=== PATIENT | female | born 1985 | race Two or more races ===

== ENCOUNTER 2019-10-07 01:22 | Inpatient (IN) | payer MEDICAID ==
[~2019-10-07] VITALS: Ht 160 cm; Wt 63.5 kg
--- NOTE | 2019-10-07 01:37 | NUR ---
ED Nurse Note: Pt ambulated to ED from home c/o N/V and abdominal pain for several hours.Pt is A&Ox4, VSS. Pt has a hx of pancreatitis and gall stones. Pt was recently hospitalized for the same symptoms. Pt placed on manufacturing team leader
--- NOTE | 2019-10-07 01:39 | Emergency Room Report ---
History of Present Illness General Chief Complaint: Abdominal Pain Source: Patient Present Illness HPI 34-year-old female with past medical history of cholelithiasis presents with complaint of postprandial epigastric abdominal pain with radiation to the right upper quadrant. Patient states this feels different from her regular gallstone pancreatitis. Patient has been unable to follow-up with a general surgeon as an outpatient since her discharge from the hospital last month. Last oral intake was dinner around 8 PM. Last bowel movement was this morning and normal. Patient denies fevers, chills, however has nausea and an episode of nonbloody nonbilious vomiting. No diarrhea. Denies dysuria or hematuria, chest pain, shortness of breath, cough or other complaints. The patient's symptoms were gradual onset, severity was moderate, duration since 1 day. Quality: Squeezing Past medical history: Cholelithiasis Past surgical history: Denies Smoking: Denies Alcohol use: Denies Drug use: Denies Review of systems: CONST: No fevers or chills, No night sweats PULMONARY: No productive cough, No shortness of breath CARDIAC: No chest pain, No palpitations GI: No vomiting, No diarrhea , No melena_or_BRBPR : No dysuria, No hematuria, No discharge NEURO: No new_focal_weakness_or_numbness, No confusion, No vision changes 14 point Review of Systems is otherwise negative except per HPI Physical Exam: GENERAL: Awake_alert_ nontoxic, no acute distress Spo2 100% on RA -normal EYES: Extraocular muscles are intact. Conjunctivae clear. Lids without swelling ENT: External nose and ear normal_in_appearance. Oropharynx clear. Head_ atraumatic, Moist_oral_mucosa NECK: No JVD. No meningismus. No thyromegaly. Supple. Trachea midline RESP: Normal respiratory effort. Symmetric rise. No stridor. Clear_to_ auscultation_No_rales_No_wheezes CARDIAC: Regular rate and regular rhytm. No_significant pedal edema. ABDOMEN: Soft. Nondistended. Nontender_No_rebound_or_guarding. Epigastric right upper quadrant tenderness to palpation. Negative Goode sign. Negative Rovsing sign. Negative obturator sign. No CVA tenderness to palpation MSK: Normal muscle tone, without rigidity. Extremities without asymmetric deformity or swelling. SKIN: Warm and dry. No visible cyanosis or pallor NEUROLOGIC: Alert, oriented x3. Motor_and_sensation_grossly_intact. No truncal ataxia. Gait_normal Psych: Normal mood and affect, normal judgment and insight - COORDINATION OF CARE Case was discussed with: Patient patient's physician Any labs and imaging that were ordered were interpreted as part of the medical decision making: I did review previous medical records from last admission. Patient was noted to have cholelithiasis on ultrasound. Abdominal MRCP was performed and negative for acute cholecystitis. Pancreatitis was also noted during that admission and resolved Medical Decision Making/Plan: Differential diagnosis includes cholecystitis, choledocholithiasis, hepatitis, small bowel obstruction, volvulus, AAA, pancreatitis, atypical appendicitis, gastroparesis, gastritis, peptic ulcer disease, among others. Patient is well appearing with stable vital signs. Abdominal exam is non peritoneal with no guarding or rebound. Labs show barely elevated lipase level greater than 2000. No obstructive biliary pattern. She has a transaminitis which is stable from last admission. No leukocytosis. Troponin negative x1. Incidentally, patient has mild UTI on urinalysis EKG shows sinus arrhythmia. No acute ST elevation [place]. ED intervention included multiple rounds of morphine and Zofran for her abdominal pain. Also received Rocephin for UTI. Abdominal pain is likely secondary to pancreatitis. Doubt pseudocyst at this time. According to the hydrological technical officer, the pancreas is normal-appearing. CBD is marginally dilated. Otherwise no gallbladder wall thickening, sonographic Goode sign, or pericholecystic fluid. The patient denies any bloody stool and has no pain out of proportion to exam, and no significant risk factors for mesenteric ischemia such as atrial fibrillation or severe PAD/PVD (peripheral arterial / vascular disease), thus definitive workup to rule out mesenteric ischemia was not pursued. The patient has no significant risk factors for AAA (abdominal aortic aneurysm) such as age over 50 with history of hypertension, connective tissue disorder, or 1st degree relative with AAA. the patient has normal dorsalis pedis pulses, no radiation of pain to the back, and no pulsatile mass felt on exam. The patients profile was overall low risk for AAA and definitive workup was not pursued. The patients symptoms are not consistent with ACS (acute coronary syndrome), symptoms are not exertional, EKG without obvious ischemic change. Allergies: Coded Allergies: No Known Allergies (Unverified , 08/21/19) COVID-19 Screening Contact w/high risk pt: No Recent Travel to affected area: No Experienced COVID-19 symptoms?: No COVID-19 Testing performed CALIBRATION ENGINEER: No Patient History Last Menstrual Period: 09/2019 Physical Exam Vital Signs Date Time Temp Pulse Resp B/P (MAP) Pulse Ox O2 Delivery O2 Flow Rate FiO2 10/07/19 01:28 97.5 86 16 106/67 (80) 97 Room Air Sp02 EP Interpretation: reviewed, normal Medical Decision Making Diagnostic Impression: Primary Impression: Acute gallstone pancreatitis Additional Impressions: Abdominal pain Nausea & vomiting Transaminitis UTI (urinary tract infection) EKG Diagnostic Results CHRISTINE Aragon Text 12-lead EKG (interpreted by me) Time: Indication: Rhythm analysis Tracing visualized and Interpreted by me. Rhythm: Normal sinus rhythm Rate: 69 bpm QTc: 396 Morphology: No_significant_ST_elevations_or_depressions, No STEMI Impression: Normal_sinus_rhythm_without_significant_abnormality. Sinus arrhythmia Rhythm Strip Diag. Results Rhythm Strip Time: 02:49 EP Interpretation: yes Rate: 77 Rhythm: NSR, no PVC's, no ectopy Reevaluation Time: 02:49 Last Vital Signs Date Time Temp Pulse Resp B/P (MAP) Pulse Ox O2 Delivery O2 Flow Rate FiO2 10/07/19 01:28 97.5 86 16 106/67 (80) 97 Room Air Status: improved Disposition: ADMITTED INPATIENT Admit Decision Time: 02:49 Condition: Stable Scripts No Active Prescriptions or Reported Meds Iram Hernandez D.O. Oct 07, 2019 01:39
[2019-10-07 01:40] VITALS: BP 106/67
[2019-10-07] MEDS ORDERED: Morphine Sulfate 4mg/ml Inj (IV USE ONLY) ONE (01:57)
[2019-10-07] MEDS ORDERED: Morphine Sulfate 4mg/ml Inj (IV USE ONLY) IVP ONE ×2 (02:00→02:45)
--- NOTE | 2019-10-07 02:20 | NUR ---
ED Nurse Note: US at bedside
[2019-10-07 02:27] LABS: BASOPHILS % (AUTO) 0.9 % (0.0-2.0); EOSINOPHILS % (AUTO) 0.7 % (0.0-3.0); HEMATOCRIT 38.1 % (37.0-47.0); HEMOGLOBIN 13.1 G/DL (12.0-16.0); LYMPHOCYTES % (AUTO) 36.8 % (20.0-45.0); MEAN CORPUSCULAR VOLUME 89 FL (80-99); MONOCYTES % (AUTO) 6.7 % (1.0-10.0); NEUTROPHILS % (AUTO) 54.9 % (45.0-75.0); PLATELET COUNT 288 K/UL (150-450); RED BLOOD COUNT 4.27 M/UL (4.20-5.40); RED CELL DISTRIBUTION WIDTH 10.9 % (11.6-14.8); WHITE BLOOD COUNT 10.1 K/UL (4.8-10.8)
[2019-10-07 02:30] LABS: ANION GAP 10 mmol/L (5-15); BLOOD UREA NITROGEN 26 mg/dL (7-18); CALCIUM 9.2 MG/DL (8.5-10.1); CARBON DIOXIDE 28 MMOL/L (21-32); CHLORIDE 100 MMOL/L (98-107); CREATININE 0.9 MG/DL (0.55-1.30); POTASSIUM 3.5 MMOL/L (3.5-5.1); SODIUM 138 MMOL/L (136-145)
[2019-10-07 02:35] LABS: ALANINE AMINOTRANSFERASE 132 U/L (12-78); ALBUMIN 3.8 G/DL (3.4-5.0); ALBUMIN/GLOBULIN RATIO 1.1 (1.0-2.7); ALKALINE PHOSPHATASE 92 U/L (46-116); ASPARTATE AMINO TRANSFERASE 212 U/L (15-37); BILIRUBIN,TOTAL 0.3 MG/DL (0.2-1.0)
[2019-10-07 02:36] LABS: APPEARANCE,URINE CLOUDY; BILIRUBIN, URINE NEGATIVE (NEGATIVE); COLOR,URINE PALE YELLOW; GLUCOSE, URINE (UA) NEGATIVE (NEGATIVE); KETONES,URINE NEGATIVE (NEGATIVE); LEUKOCYTE ESTERASE ,URINE 1+ (NEGATIVE); NITRITE,URINE NEGATIVE (NEGATIVE); PH,URINE 8 (4.5-8.0); PROTEIN,URINE NEGATIVE (NEGATIVE); UROBILINOGEN,URINE NORMAL MG/DL (0.0-1.0)
[2019-10-07] MEDS ORDERED: cefTRIAXone 1 GM in NS 55 ML IVPB ONE (02:45)
--- NOTE | 2019-10-07 03:46 | Diagnostic Imaging Report ---
EXAM: US Abdomen Complete CLINICAL HISTORY: ABD PAIN TECHNIQUE: Real-time ultrasound of the abdomen with image documentation. COMPARISON: No relevant prior studies available. FINDINGS: Liver: Unremarkable. No mass. No intrahepatic bile duct dilation. Gallbladder: Multiple shadowing gallstones. Negative for gallbladder wall thickening or pericholecystic fluid. Borderline extrahepatic biliary ductal dilatation with the common duct measuring slightly greater than 5 mm. Common bile duct: See above Pancreas: Unremarkable as visualized. Kidneys: Unremarkable. No stones. No solid mass. No hydronephrosis. Spleen: Unremarkable. No splenomegaly. Aorta: Unremarkable. No aneurysm. Inferior vena cava: Unremarkable. IMPRESSION: Cholelithiasis and borderline extrahepatic biliary ductal dilatation.
--- NOTE | 2019-10-07 04:15 | NUR ---
TRANSFER TO FLOOR: Patient transferred to as ordered, per DR ruiz. Report given to MAIKEL Tatum. Belongings and medications given to . Family and or S/O informed of transfer.
[2019-10-07 04:20] VITALS: BP 102/66
--- NOTE | 2019-10-07 04:20 | NUR ---
NURSE NOTES: Report received from MAIKEL Tabares. Patient arrived at the unit at 0420 am. Patient's belongings brought and at the bedside. Checked inventory list, alll belongings present. Patient denies any pain as of the moment. Patient is alert and oriented x4. very pleasant female. Will call for admitting orders.
--- NOTE | 2019-10-07 05:00 | NUR ---
NURSE NOTES: Received orders from Dr Ramirez for the admission. Received order to continue all ED orders.
[2019-10-07] MEDS ORDERED: Morphine Sulfate 2mg/ml Inj(IV/IM USE ONLY) IVP PRN (05:15)
--- NOTE | 2019-10-07 07:14 | NUR ---
NURSE HAND-OFF: Important Events on Shift:[Admission/ Pain management ] Patient Status: [Stable] Diet: [NPO] Pending Orders: [] Pending Results/Labs:[] Pending MD notification:[] Latest Vital Signs: Temperature 98.1 , Pulse 75 , B/P 102 /66 , Respiratory Rate 18 , O2 SAT 100 , Room Air, O2 Flow Rate . Vital Sign Comment: [] Latest Young Fall Score: 35 Fall Risk: Medium Risk Safety Measures: Call light Within Reach, Bed Alarm , Side Rails Side Rails x2, Bed position Low and Locked. Fall Precautions: Patient Fall Education Report given to [Kaleigh KO].
[2019-10-07 08:00] VITALS: BP 101/59
--- NOTE | 2019-10-07 08:00 | NUR ---
NURSE NOTES: Received report from Rc KO, pt is a/a/o x4 laying in bed with no signs of distress or other issues at this time. no skin issues. IV on the right AC gauge #22 running NS@100ml/hr. call light within reach, bed in lowest position. side rales up x2. I will f/u as needed.
--- NOTE | 2019-10-07 10:11 | General Progress Note ---
Assessment/Plan Assessment/Plan: ? gallstone pancreatitis NPO IVF pain control MRCP repeat labs surg consult Subjective Allergies: Coded Allergies: No Known Allergies (Unverified , 08/21/19) Objective Last 24 Hour Vital Signs Date Time Temp Pulse Resp B/P (MAP) Pulse Ox O2 Delivery O2 Flow Rate FiO2 10/07/19 08:00 97.6 70 16 101/59 (73) 99 10/07/19 04:20 98.1 75 18 102/66 (78) 100 10/07/19 04:15 98.0 82 16 112/64 100 Room Air 10/07/19 04:03 Room Air 10/07/19 02:29 97.6 10/07/19 01:40 86 16 Room Air 10/07/19 01:40 97.5 86 16 106/67 97 Room Air 10/07/19 01:28 97.5 86 16 106/67 (80) 97 Room Air Laboratory Tests 10/07/19 01:35: Urine Color Pale yellow, Urine Appearance Cloudy, Urine pH 8, Urine Specific Pound 1.010, Urine Protein Negative, Urine Glucose (UA) Negative, Urine Ketones Negative, Urine Blood Negative, Urine Nitrite Negative, Urine Bilirubin Negative, Urine Urobilinogen Normal, Urine Leukocyte Esterase 1+H, Urine RBC 0-2 , Urine WBC 2-4, Urine Squamous Epithelial Cells ModerateH, Urine Amorphous Sediment ManyH, Urine Bacteria ModerateH, Urine Coarse Granular Casts 5-10H 10/07/19 02:00: White Blood Count 10.1, Red Blood Count 4.27, Hemoglobin 13.1, Hematocrit 38.1, Mean Corpuscular Volume 89, Mean Corpuscular Hemoglobin 30.6, Mean Corpuscular Hemoglobin Concent 34.3, Red Cell Distribution Width 10.9L, Platelet Count 288, Mean Platelet Volume 7.1, Neutrophils (%) (Auto) 54.9, Lymphocytes (%) (Auto) 36.8, Monocytes (%) (Auto) 6.7, Eosinophils (%) (Auto) 0.7, Basophils (%) (Auto ) 0.9, Prothrombin Time 10.8, Prothromb Time International Ratio 1.0, Activated Partial Thromboplast Time 26, Sodium Level 138, Potassium Level 3.5, Chloride Level 100, Carbon Dioxide Level 28, Anion Gap 10, Blood Urea Nitrogen 26H, Creatinine 0.9, Estimat Glomerular Filtration Rate > 60, Glucose Level 97, Calcium Level 9.2, Total Bilirubin 0.3, Aspartate Amino Transf (AST/SGOT) 212H, Alanine Aminotransferase (ALT/SGPT) 132H, Alkaline Phosphatase 92, Total Protein 7.4, Albumin 3.8, Globulin 3.6, Albumin/Globulin Ratio 1.1, Lipase 2067H , Human Chorionic Gonadotropin, Qual Negative Height (Feet): 5 Height (Inches): 4.00 Weight (Pounds): 140 General Appearance: alert EENT: PERRL/EOMI Neck: supple Cardiovascular: normal rate Respiratory/Chest: decreased breath sounds Abdomen: hypoactive bowel sounds, tender Extremities: non-tender Shashank Onofre MD Oct 07, 2019 10:11
[2019-10-07 12:00] VITALS: BP 114/70
--- NOTE | 2019-10-07 14:26 | NUR ---
CASE MANAGEMENT: INITIAL REVIEW 34YR OLD FEMALE FROM HOME CC:ABDOMINAL PAIN; NV SI:ACUTE GALLSTONE PANCREATITIS . UTI 97.6 86 16 106/67 97% ON RA LIPASE 2067 AST.ALT 212/132 BUN 26 IS:IVF NS BOLUS X1 IV ZOFRAN X2 IV MORPHINE SULFATE X2 US ABD Complete-Cholelithiasis and borderline extrahepatic biliary ductal dilatation. \: 3E MED SURG UNIT DCP: HOME WHEN STABLE
--- NOTE | 2019-10-07 15:26 | Diagnostic Imaging Report ---
Indication: Reason For Exam: ABD PAIN Technique: Coronal and axial single shot fast spin-echo breath-hold, axial T2 FRFSE, 2-D thick slab MRCP, AXIAL 2-D FIESTA fat saturated, axial 3-D dual echo breath-hold, water weighted axial LAVA FLEX, revealed 3-D MRCP images were obtained of the abdomen. MIP reconstructions were generated of the bile ducts Comparison: 08/22/2019. Reference also made to abdominal sonogram 10/07/2019 Findings: Small low signal filling defects are seen at or near the gallbladder neck, also previously reported. No gallbladder distention or gallbladder wall thickening. No josue biliary ductal dilatation-common bile duct diameter upper limits of normal. The pancreatic duct is not well visualized. The liver, pancreas, spleen, adrenals are all unremarkable. The kidneys are unremarkable. Included pelvic viscera are unremarkable. No significant interim change. Impression: Cholelithiasis Otherwise essentially unremarkable exam
[2019-10-07 16:00] VITALS: BP 108/64
--- NOTE | 2019-10-07 17:00 | History and Physical Report ---
DATE OF ADMISSION: 10/07/2019 HISTORY OF PRESENT ILLNESS: This is a 34-year-old female, came with abdominal pain, nausea, vomiting, was found to have a possible UTI and acute pancreatitis. The patient is still complaining pain. No fever. No chills. PAST MEDICAL HISTORY: None. ALLERGIES: None. SOCIAL HISTORY: Denies alcohol. PHYSICAL EXAMINATION: VITAL SIGNS: Blood pressure 101/59, pulse 70, respirations 16, temperature 97.6. HEENT: NAD. CHEST: Bilaterally clear. CARDIOVASCULAR: Regular rhythm. No gallop. No murmur. ABDOMEN: Mild tenderness in the right upper quadrant. GENITOURINARY: Deferred. LABORATORY DATA: White counts are 10,000, hemoglobin 13. Chemistry, BUN 26, creatinine 0.9. AST, ALT are high. Lipase 2066. Ultrasound of her abdomen, cholelithiasis and borderline biliary dilatation. ASSESSMENT: 1. Acute pancreatitis. 2. Acute cholelithiasis. PLAN: We will admit on medical floor. Start IV fluid, IV antibiotics. Consider GI consult. Emile Ramirez M.D. DR: JUNO JOB#: [id number] CC:
[2019-10-07] MEDS ORDERED: HYDROcodone/Acetamin 5/325 tab ORAL PRN (18:45)
--- NOTE | 2019-10-07 19:34 | NUR ---
NURSE HAND-OFF: Important Events on Shift: MRCP done Patient Status: full code Diet: NPO Pending Orders: N/A Pending Results/Labs: MRCP Pending MD notification: Latest Vital Signs: Temperature 98.1 , Pulse 65 , B/P 108 /64 , Respiratory Rate 16 , O2 SAT 98 , Room Air, O2 Flow Rate . Vital Sign Comment: Latest Young Fall Score: 35 Fall Risk: Medium Risk Safety Measures: Call light Within Reach, Bed Alarm Zone 1, Side Rails Side Rails x2, Bed position Low and Locked. Fall Precautions: Patient Fall Education Report given to Berta KO. pt in stable condition with no signs of distress.
--- NOTE | 2019-10-07 19:35 | NUR ---
NURSE NOTES: Received report from Kaleigh KO. Rounding is done. Patient is a/o x4. Denied any pain at this time. No any distress noted at this time. Breathing is even and unlabored. IV site is intact and patent. Bed is on alarm, locked, and in lowest position. Call light within reach. Will continue to monitor.
[2019-10-07 20:00] VITALS: BP 108/69
[2019-10-08] VITALS: BP 124/69
[2019-10-08 04:00] VITALS: BP 103/67
[2019-10-08 05:46] LABS: BASOPHILS % (AUTO) 0.9 % (0.0-2.0); EOSINOPHILS % (AUTO) 1.7 % (0.0-3.0); HEMATOCRIT 36.6 % (37.0-47.0); HEMOGLOBIN 12.2 G/DL (12.0-16.0); LYMPHOCYTES % (AUTO) 51.8 % (20.0-45.0); MEAN CORPUSCULAR VOLUME 91 FL (80-99); MONOCYTES % (AUTO) 6.5 % (1.0-10.0); NEUTROPHILS % (AUTO) 39.1 % (45.0-75.0); PLATELET COUNT 217 K/UL (150-450); RED BLOOD COUNT 4.05 M/UL (4.20-5.40); RED CELL DISTRIBUTION WIDTH 11.4 % (11.6-14.8); WHITE BLOOD COUNT 5.8 K/UL (4.8-10.8)
[2019-10-08 06:06] LABS: ALANINE AMINOTRANSFERASE 230 U/L (12-78); ALKALINE PHOSPHATASE 84 U/L (46-116); ANION GAP 7 mmol/L (5-15); ASPARTATE AMINO TRANSFERASE 109 U/L (15-37); BILIRUBIN,TOTAL 0.4 MG/DL (0.2-1.0); BLOOD UREA NITROGEN 10 mg/dL (7-18); CALCIUM 8.9 MG/DL (8.5-10.1); CARBON DIOXIDE 25 MMOL/L (21-32); CHLORIDE 109 MMOL/L (98-107); CREATININE 0.7 MG/DL (0.55-1.30); POTASSIUM 3.9 MMOL/L (3.5-5.1); SODIUM 141 MMOL/L (136-145)
--- NOTE | 2019-10-08 07:18 | NUR ---
NURSE HAND-OFF: Important Events on Shift:[NONE] Patient Status: [STABLE] Diet: [NPO] Pending Orders: [NONE] Pending Results/Labs:[NONE] Pending MD notification:[NONE] Latest Vital Signs: Temperature 98.0 , Pulse 73 , B/P 103 /67 , Respiratory Rate 18 , O2 SAT 99 , Room Air, O2 Flow Rate . Vital Sign Comment: [STABLE] Latest Young Fall Score: 35 Fall Risk: Medium Risk Safety Measures: Call light Within Reach, Bed Alarm Zone 1, Side Rails Side Rails x2, Bed position Low and Locked. Fall Precautions: Patient Fall Education Report given to [CHAZ KO].
--- NOTE | 2019-10-08 07:27 | NUR ---
NURSE NOTES: Received report from Berta KO, pt a/a/o x4 laying in bed with no signs of distress or other issues at this time. pt is able to ambulate around the room with steady gait. call light within reach, bed in lowest position, side rales up x2. I will f/u as needed.
[2019-10-08 08:00] VITALS: BP 125/66
--- NOTE | 2019-10-08 09:24 | General Progress Note ---
Assessment/Plan Assessment/Plan: ? gallstone pancreatitis IVF pain control MRCP>> reviewed>> no CBD stones advance diet repeat labs surg consult Subjective ROS Limited/Unobtainable: Yes Allergies: Coded Allergies: No Known Allergies (Unverified , 08/21/19) Objective Last 24 Hour Vital Signs Date Time Temp Pulse Resp B/P (MAP) Pulse Ox O2 Delivery O2 Flow Rate FiO2 10/08/19 08:00 97.6 66 20 125/66 (85) 100 10/08/19 04:00 98.0 73 18 103/67 (79) 99 10/08/19 00:00 98.0 78 18 124/69 (87) 98 10/07/19 21:00 Room Air 10/07/19 20:00 98.6 65 18 108/69 (82) 100 10/07/19 16:00 98.1 65 16 108/64 (79) 98 10/07/19 12:00 97.9 71 16 114/70 (85) 98 Intake and Output 10/07/19 10/08/19 19:00 07:00 Intake Total 1100 ml Output Total 3 ml Balance -3 ml 1100 ml Intake IV Total 1100 ml Output Urine Total 3 ml # Voids 2 Laboratory Tests 10/08/19 04:45: White Blood Count 5.8, Red Blood Count 4.05L, Hemoglobin 12.2, Hematocrit 36.6L , Mean Corpuscular Volume 91, Mean Corpuscular Hemoglobin 30.2, Mean Corpuscular Hemoglobin Concent 33.3, Red Cell Distribution Width 11.4L, Platelet Count 217, Mean Platelet Volume 7.0, Neutrophils (%) (Auto) 39.1L, Lymphocytes (%) (Auto) 51.8H, Monocytes (%) (Auto) 6.5, Eosinophils (%) (Auto) 1.7, Basophils (%) (Auto) 0.9, Sodium Level 141, Potassium Level 3.9, Chloride Level 109H, Carbon Dioxide Level 25, Anion Gap 7, Blood Urea Nitrogen 10, Creatinine 0.7, Estimat Glomerular Filtration Rate > 60, Glucose Level 76, Calcium Level 8.9, Total Bilirubin 0.4, Aspartate Amino Transf (AST/SGOT) 109H, Alanine Aminotransferase (ALT/SGPT) 230H, Alkaline Phosphatase 84, Total Protein 5.9L, Albumin 3.0L, Globulin 2.9, Albumin/Globulin Ratio 1.0, Amylase Level 66, Lipase 122 Height (Feet): 5 Height (Inches): 4.00 Weight (Pounds): 140 General Appearance: alert EENT: normal ENT inspection Neck: supple Cardiovascular: normal rate Respiratory/Chest: decreased breath sounds Abdomen: normal bowel sounds, non tender, soft Extremities: non-tender Shashank Onofre MD Oct 08, 2019 09:24
[2019-10-08 12:00] VITALS: BP 108/64
--- NOTE | 2019-10-08 13:30 | Progress Note ---
DATE: 10/08/2019 SUBJECTIVE: Doing better. Abdominal pain is improving. The patient is going for surgery tomorrow. OBJECTIVE: VITAL SIGNS: Blood pressure 125/66, pulse 68. No fever. CHEST: Bilaterally clear. CARDIOVASCULAR: Regular rhythm. ABDOMEN: Soft. EXTREMITIES: CCE. LABORATORY DATA: Chemistry panel, AST and ALT high. ASSESSMENT: 1. Acute cholecystitis. 2. Acute pancreatitis. PLAN: The patient currently continue , Tylenol, hydrocodone, and morphine. The patient is going for surgery tomorrow. Emile Ramirez M.D. DR: LEYDI JOB#: [id number] CC:
--- NOTE | 2019-10-08 14:52 | Consultation ---
History of Present Illness General Date patient seen: Oct 08, 2019 Reason for Hospitalization: Abdominal Pain Present Illness HPI 34F well known to me from recent admission with acute cholecystitis improved with medical management and discharged safely. states she went home from last admission and changed her diet and began to exercise. was doing well until recently when worsening abd pain. came to ED and noted to have acute gallstone pancreatitis. admitted for care. still with cramping 5/10 ruq epi pain with radiation to back. worse with food. no n/v/f/c. Allergies: Coded Allergies: No Known Allergies (Unverified , 08/21/19) COVID-19 Screening Contact w/high risk pt: No Recent Travel to affected area: No Experienced COVID-19 symptoms?: No Medication History No Active Prescriptions or Reported Meds Patient History History Provided By: Patient Healthcare decision maker Resuscitation status Advanced Directive on File Past Medical/Surgical History Past Medical/Surgical History: (1) UTI (urinary tract infection) (2) Nausea & vomiting (3) Transaminitis (4) Abdominal pain (5) Acute gallstone pancreatitis (6) Cholelithiasis Review of Systems Review of Symptoms General ROS: no weight loss or fever Psychological ROS: no depression or mood changes, no memory loss Ophthalmic ROS: no visual changes or eye irritation ENT ROS: no nasal congestion, hearing loss, dizziness Allergy and Immunology ROS: no allergic symptoms or urticaria Hematological and Lymphatic ROS: no swollen glands, unusual bleeding or bruising Endocrine ROS: no polyuria, polydipsia, weight changes, temperature intolerance Respiratory ROS: no cough, shortness of breath, or wheezing Cardiovascular ROS: no chest pain or dyspnea on exertion Gastrointestinal ROS: + abdominal pain, no bright red blood in stool. Musculoskeletal ROS: no myalgias or arthralgias Neurological ROS: no TIA or stroke symptoms Dermatological ROS: no new or changing skin lesions, rashes or pruritis Physical Exam Physical Exam General appearance: alert, cooperative, no distress, appears stated age Head: Normocephalic, without obvious abnormality, atraumatic Eyes: conjunctivae/corneas clear. PERRL, EOM's intact. Fundi benign Throat: Lips, mucosa, and tongue normal. Teeth and gums normal Neck: supple, symmetrical, trachea midline, no adenopathy, thyroid: not enlarged, symmetric, no tenderness/mass/nodules, no carotid bruit and no JVD Lungs: clear to auscultation bilaterally Heart: regular rate and rhythm, S1, S2 normal, no murmur, click, rub or gallop Abdomen: soft, non-tender. Bowel sounds normal. No masses, no organomegaly Extremities: extremities normal, atraumatic, no cyanosis or edema Pulses: 2+ and symmetric Skin: Skin color, texture, turgor normal. No rashes or lesions Neurologic: Grossly normal Last 24 Hour Vital Signs Date Time Temp Pulse Resp B/P (MAP) Pulse Ox O2 Delivery O2 Flow Rate FiO2 10/08/19 12:00 98.0 60 18 108/64 (79) 99 10/08/19 10:39 97.6 10/08/19 09:00 Room Air 10/08/19 08:00 97.6 66 20 125/66 (85) 100 10/08/19 04:00 98.0 73 18 103/67 (79) 99 10/08/19 00:00 98.0 78 18 124/69 (87) 98 10/07/19 21:00 Room Air 10/07/19 20:00 98.6 65 18 108/69 (82) 100 10/07/19 16:00 98.1 65 16 108/64 (79) 98 Intake and Output 10/07/19 10/08/19 19:00 07:00 Intake Total 1100 ml Output Total 3 ml Balance -3 ml 1100 ml Intake IV Total 1100 ml Output Urine Total 3 ml # Voids 2 Laboratory Tests Test 10/08/19 04:45 White Blood Count 5.8 K/UL (4.8-10.8) Red Blood Count 4.05 M/UL (4.20-5.40) L Hemoglobin 12.2 G/DL (12.0-16.0) Hematocrit 36.6 % (37.0-47.0) L Mean Corpuscular Volume 91 FL (80-99) Mean Corpuscular Hemoglobin 30.2 PG (27.0-31.0) Mean Corpuscular Hemoglobin Concent 33.3 G/DL (32.0-36.0) Red Cell Distribution Width 11.4 % (11.6-14.8) L Platelet Count 217 K/UL (150-450) Mean Platelet Volume 7.0 FL (6.5-10.1) Neutrophils (%) (Auto) 39.1 % (45.0-75.0) L Lymphocytes (%) (Auto) 51.8 % (20.0-45.0) H Monocytes (%) (Auto) 6.5 % (1.0-10.0) Eosinophils (%) (Auto) 1.7 % (0.0-3.0) Basophils (%) (Auto) 0.9 % (0.0-2.0) Sodium Level 141 MMOL/L (136-145) Potassium Level 3.9 MMOL/L (3.5-5.1) Chloride Level 109 MMOL/L (98-107) H Carbon Dioxide Level 25 MMOL/L (21-32) Anion Gap 7 mmol/L (5-15) Blood Urea Nitrogen 10 mg/dL (7-18) Creatinine 0.7 MG/DL (0.55-1.30) Estimat Glomerular Filtration Rate > 60 mL/min (>60) Glucose Level 76 MG/DL (74-106) Calcium Level 8.9 MG/DL (8.5-10.1) Total Bilirubin 0.4 MG/DL (0.2-1.0) Aspartate Amino Transf (AST/SGOT) 109 U/L (15-37) H Alanine Aminotransferase (ALT/SGPT) 230 U/L (12-78) H Alkaline Phosphatase 84 U/L (46-116) Total Protein 5.9 G/DL (6.4-8.2) L Albumin 3.0 G/DL (3.4-5.0) L Globulin 2.9 g/dL Albumin/Globulin Ratio 1.0 (1.0-2.7) Amylase Level 66 U/L (25-115) Lipase 122 U/L (73-393) Height (Feet): 5 Height (Inches): 4.00 Weight (Pounds): 140 Medications Current Medications Medications (Trade) Dose Ordered Sig/Bibiana Route PRN Reason Start Time Stop Time Status Last Admin Dose Admin Acetaminophen (Tylenol) 650 mg Q6H PRN ORAL For Headache 10/08/19 10:00 11/07/19 09:59 10/08/19 10:09 Acetaminophen/ Hydrocodone Bitart ([place] 5/325) 1 tab Q6H PRN ORAL For Pain 10/07/19 18:45 10/14/19 18:44 10/07/19 23:38 Ceftriaxone Sodium 1 gm/ Dextrose 55 ml @ 110 mls/hr Q24H IVPB 10/08/19 21:00 10/15/19 20:59 Morphine Sulfate (Morphine Sulfate) 1 mg Q6H PRN IVP For Pain 10/07/19 05:15 10/14/19 05:14 Ondansetron HCl (Zofran) 4 mg Q6H PRN IVP Nausea & Vomiting 10/07/19 05:15 11/06/19 05:14 Sodium Chloride 1,000 ml @ 100 mls/hr Q10H IV 10/07/19 06:00 11/06/19 05:59 10/08/19 12:00 Assessment/Plan Problem List: (1) UTI (urinary tract infection) ICD Codes: N39.0 - Urinary tract infection, site not specified SNOMED: 33005272, 905947799 (2) Nausea & vomiting ICD Codes: R11.2 - Nausea with vomiting, unspecified SNOMED: 93171459 (3) Transaminitis ICD Codes: R74.0 - Nonspecific elevation of levels of transaminase and lactic acid dehydrogenase [LDH] SNOMED: 537548013, 280435067 (4) Cholelithiasis ICD Codes: K80.20 - Calculus of gallbladder without cholecystitis without obstruction SNOMED: 643390590 (5) Abdominal pain Assessment & Plan: Small low signal filling defects are seen at or near the gallbladder neck, also previously reported. No gallbladder distention or gallbladder wall thickening. No josue biliary ductal dilatation-common bile duct diameter upper limits of normal. The pancreatic duct is not well visualized. The liver, pancreas, spleen, adrenals are all unremarkable. The kidneys are unremarkable. Included pelvic viscera are unremarkable. No significant interim change. Impression: Cholelithiasis ICD Codes: R10.9 - Unspecified abdominal pain SNOMED: 41729572, 932462347 (6) Acute gallstone pancreatitis Assessment & Plan: 34F acute gallstone pancreatitis hx acute katy medical management failed lifestyle changes failed recommend lap vs open katy npo iv fluids abx consent plan for surgery ICD Codes: K85.10 - Biliary acute pancreatitis without necrosis or infection SNOMED: 769151915 Jaguar Guzman Oct 08, 2019 14:52
--- NOTE | 2019-10-08 14:53 | Pre-Procedure Note/Attestation ---
Pre-Procedure Note/Attestation Complete Prior to Procedure Planned Procedure: not applicable Procedure Narrative: laparoscopic possible open cholecystectomy Indications for Procedure Pre-Operative Diagnosis: acute gallstone pancreatitis Attestation I attest that I discussed the nature of the procedure; its benefits; risks and complications; and alternatives (and the risks and benefits of such alternatives ), prior to the procedure, with the patient (or the patient's legal circulation representative). I attest that, if there was a reasonable possibility of needing a blood transfusion, the patient (or the patient's legal circulation representative) was given the [facility] standardized written summary, pursuant to the Jeancarlos Mila Blood Safety Act ([place] Health and Safety Code # 1645, as amended). I attest that I re-evaluated the patient just prior to the surgery and that there has been no change in the patient's H&P, except as documented below: Jaguar Guzman Oct 08, 2019 14:53
[2019-10-08 16:00] VITALS: BP 108/61
--- NOTE | 2019-10-08 16:34 | Anethesia Preoperative Eval ---
Anesthesia Pre-op PMH/ROS General Date of Evaluation: Oct 08, 2019 Time of Evaluation: 16:30 Anesthesiologist: Lawanda ASA Score: ASA 2 Mallampati Score Class I : Soft palate, uvula, fauces, pillars visible Class II: Soft palate, uvula, fauces visible Class III: Soft palate, base of uvula visible Class IV: Only hard plate visible Mallampati Classification: Class II Surgeon: Silvino Diagnosis: Symptomatic cholelitiasis Surgical Procedure: Laparoscopic cholecystectomy Anesthesia History: none Family History: no anesthesia problems Allergies: Coded Allergies: No Known Allergies (Unverified , 08/21/19) Medications: see eMAR Patient NPO?: Yes Past Medical History Cardiovascular: Denies: HTN, CAD, LA, valve dz, arrhythmia, other Pulmonary: Denies: asthma, COPD, GASTON, other Gastrointestinal/Genitourinary: Reports: GERD, other - recurrent abdom inal pain; Denies: CRI, ESRD Neurologic/Psychiatric: Denies: dementia, CVA, depression/anxiety, TIA, other Endocrine: Denies: DM, hypothyroidism, steroids, other HEENT: Denies: cataract (L), cataract (R), glaucoma, STEBBINS (L), STEBBINS (R), other Hematology/Immune: Denies: anemia, DVT, bleeding disorder, other Musculoskeletal/Integumentary: Denies: OA, RA, DJD, DDD, edema, other PMH Narrative: Admitted for recurrent abdominal pain. PSxH Narrative: See H&P Anesthesia Pre-op Phys. Exam Physician Exam Last Vital Signs Date Time Temp Pulse Resp B/P (MAP) Pulse Ox O2 Delivery O2 Flow Rate FiO2 10/08/19 12:00 98.0 60 18 108/64 (79) 99 10/08/19 09:00 Room Air Constitutional: NAD Neurologic: CN 2-12 intact Cardiovascular: RRR, no M/R/G Respiratory: CTA Gastrointestinal: other - some tenderness Airway Exam Mallampati Score: Class II MO: full Neck: flexible ROM: full Teeth: intact Dentures: no upper, no lower Anesthesia Pre-op A/P Labs Hematology Test 10/08/19 04:45 White Blood Count 5.8 K/UL (4.8-10.8) Red Blood Count 4.05 M/UL (4.20-5.40) L Hemoglobin 12.2 G/DL (12.0-16.0) Hematocrit 36.6 % (37.0-47.0) L Mean Corpuscular Volume 91 FL (80-99) Mean Corpuscular Hemoglobin 30.2 PG (27.0-31.0) Mean Corpuscular Hemoglobin Concent 33.3 G/DL (32.0-36.0) Red Cell Distribution Width 11.4 % (11.6-14.8) L Platelet Count 217 K/UL (150-450) Mean Platelet Volume 7.0 FL (6.5-10.1) Neutrophils (%) (Auto) 39.1 % (45.0-75.0) L Lymphocytes (%) (Auto) 51.8 % (20.0-45.0) H Monocytes (%) (Auto) 6.5 % (1.0-10.0) Eosinophils (%) (Auto) 1.7 % (0.0-3.0) Basophils (%) (Auto) 0.9 % (0.0-2.0) Chemistry Test 10/08/19 04:45 Sodium Level 141 MMOL/L (136-145) Potassium Level 3.9 MMOL/L (3.5-5.1) Chloride Level 109 MMOL/L (98-107) H Carbon Dioxide Level 25 MMOL/L (21-32) Anion Gap 7 mmol/L (5-15) Blood Urea Nitrogen 10 mg/dL (7-18) Creatinine 0.7 MG/DL (0.55-1.30) Estimat Glomerular Filtration Rate > 60 mL/min (>60) Glucose Level 76 MG/DL (74-106) Calcium Level 8.9 MG/DL (8.5-10.1) Total Bilirubin 0.4 MG/DL (0.2-1.0) Aspartate Amino Transf (AST/SGOT) 109 U/L (15-37) H Alanine Aminotransferase (ALT/SGPT) 230 U/L (12-78) H Alkaline Phosphatase 84 U/L (46-116) Total Protein 5.9 G/DL (6.4-8.2) L Albumin 3.0 G/DL (3.4-5.0) L Globulin 2.9 g/dL Albumin/Globulin Ratio 1.0 (1.0-2.7) Amylase Level 66 U/L (25-115) Lipase 122 U/L (73-393) Studies Pre-op Studies: EKG - NSR Risk Assessment & Plan Assessment: ASA 2 Plan: GA with ETT Good Webber MD Oct 08, 2019 16:34
[2019-10-08] MEDS ORDERED: IBUPROFEN600 M1 ORAL (18:00)
[2019-10-08] MEDS ORDERED: TUMERIC PO (18:00)
[2019-10-08] MEDS ORDERED: NORCO 5-325 TA1 EAC1 ORAL (18:00)
--- NOTE | 2019-10-08 19:41 | NUR ---
NURSE HAND-OFF: Important Events on Shift: n/a Patient Status: FULL code Diet: NPO after midnight x ice chips and meds Pending Orders: n/a Pending Results/Labs:n/a Pending MD notification:n/a Latest Vital Signs: Temperature 98.2 , Pulse 56 , B/P 108 /61 , Respiratory Rate 20 , O2 SAT 99 , Room Air, O2 Flow Rate . Vital Sign Comment: Latest Young Fall Score: 35 Fall Risk: Medium Risk Safety Measures: Call light Within Reach, Bed Alarm Zone 1, Side Rails Side Rails x2, Bed position Low and Locked. Fall Precautions: pt is able to ambulate with steady gait Patient Fall Education Report given to Berta KO. pt stable with no signs of distress or other issues at this time. - plan to OR tomorrow at 12:00 for lap katy possible open. consent signed by the pt.
[2019-10-08 20:00] VITALS: BP 119/75
[2019-10-08] MEDS: cefTRIAXone 1 GM in D5W 55 ML IVPB SCH (20:57)
[2019-10-09] VITALS (14 sets, daily range): BP systolic 98–115; BP diastolic 58–71
[2019-10-09 06:00] LABS: ALANINE AMINOTRANSFERASE 160 U/L (12-78); ALKALINE PHOSPHATASE 85 U/L (46-116); ANION GAP 8 mmol/L (5-15); ASPARTATE AMINO TRANSFERASE 50 U/L (15-37); BILIRUBIN,TOTAL 0.3 MG/DL (0.2-1.0); BLOOD UREA NITROGEN 7 mg/dL (7-18); CALCIUM 8.5 MG/DL (8.5-10.1); CARBON DIOXIDE 25 MMOL/L (21-32); CHLORIDE 106 MMOL/L (98-107); CREATININE 0.7 MG/DL (0.55-1.30); POTASSIUM 3.7 MMOL/L (3.5-5.1); SODIUM 139 MMOL/L (136-145)
[2019-10-09 06:16] LABS: BASOPHILS % (AUTO) 0.8 % (0.0-2.0); EOSINOPHILS % (AUTO) 1.3 % (0.0-3.0); HEMATOCRIT 35.5 % (37.0-47.0); HEMOGLOBIN 11.9 G/DL (12.0-16.0); LYMPHOCYTES % (AUTO) 42.9 % (20.0-45.0); MEAN CORPUSCULAR VOLUME 90 FL (80-99); MONOCYTES % (AUTO) 7.5 % (1.0-10.0); NEUTROPHILS % (AUTO) 47.5 % (45.0-75.0); PLATELET COUNT 231 K/UL (150-450); RED BLOOD COUNT 3.95 M/UL (4.20-5.40); RED CELL DISTRIBUTION WIDTH 11.1 % (11.6-14.8); WHITE BLOOD COUNT 6.1 K/UL (4.8-10.8)
--- NOTE | 2019-10-09 07:15 | NUR ---
NURSE HAND-OFF: Important Events on Shift:[none] Patient Status: [stable] Diet: [NPO] Pending Orders: [NONE] Pending Results/Labs:[NONE] Pending MD notification:[NONE] Latest Vital Signs: Temperature 98.3 , Pulse 68 , B/P 98 /58 , Respiratory Rate 18 , O2 SAT 97 , Room Air, O2 Flow Rate . Vital Sign Comment: [STABLE] Latest Young Fall Score: 35 Fall Risk: Medium Risk Safety Measures: Call light Within Reach, Bed Alarm Zone 1, Side Rails Side Rails x2, Bed position Low and Locked. Fall Precautions: Patient Fall Education Report given to [OZZIE RN].
--- NOTE | 2019-10-09 07:45 | NUR ---
NURSE NOTES: Received report from Berta KO. Rounding is done. Patient is a/o x4, able to make needs known. Breathing is even and unlabored. Denied any pain at this time. No any distress noted at this time. scheduled surgery around noon. Will do pre op check lists. Pt in stable condition. IV site is intact and patent. Bed is on alarm, locked, and in lowest position. Call light within reach. Will continue to monitor.
--- NOTE | 2019-10-09 08:20 | NUR ---
NURSE NOTES: Noted no Covid test done since pt admitted. Received order for Covid rapid test from Dr. Ramirez. Order carried out.
--- NOTE | 2019-10-09 08:30 | NUR ---
NURSE NOTES: Swabbed using left nare for Covid rapid. Verified with Charge nurse. Culture sent to the lab
--- NOTE | 2019-10-09 09:59 | General Progress Note ---
Assessment/Plan Assessment/Plan: gallstone pancreatitis IVF pain control MRCP>> reviewed>> no CBD stones repeat labs pending cholecystectomy Subjective ROS Limited/Unobtainable: Yes Allergies: Coded Allergies: No Known Allergies (Unverified , 08/21/19) Objective Last 24 Hour Vital Signs Date Time Temp Pulse Resp B/P (MAP) Pulse Ox O2 Delivery O2 Flow Rate FiO2 10/09/19 04:00 98.3 68 18 98/58 (71) 97 10/09/19 00:00 98.3 73 18 101/62 (75) 97 10/08/19 21:00 Room Air 10/08/19 20:00 98.5 58 18 119/75 (90) 100 10/08/19 16:00 98.2 56 20 108/61 (77) 99 10/08/19 12:00 98.0 60 18 108/64 (79) 99 10/08/19 10:39 97.6 Intake and Output 10/08/19 10/09/19 19:00 07:00 Intake Total 100 ml 1000 ml Balance 100 ml 1000 ml Intake IV Total 100 ml 1000 ml # Voids 2 Laboratory Tests 10/09/19 05:10: White Blood Count 6.1, Red Blood Count 3.95L, Hemoglobin 11.9L, Hematocrit 35.5L , Mean Corpuscular Volume 90, Mean Corpuscular Hemoglobin 30.1, Mean Corpuscular Hemoglobin Concent 33.5, Red Cell Distribution Width 11.1L, Platelet Count 231, Mean Platelet Volume 7.0, Neutrophils (%) (Auto) 47.5, Lymphocytes (%) (Auto) 42.9, Monocytes (%) (Auto) 7.5, Eosinophils (%) (Auto) 1.3, Basophils (%) (Auto) 0.8, Sodium Level 139, Potassium Level 3.7, Chloride Level 106, Carbon Dioxide Level 25, Anion Gap 8, Blood Urea Nitrogen 7, Creatinine 0.7, Estimat Glomerular Filtration Rate > 60, Glucose Level 79, Calcium Level 8.5, Total Bilirubin 0.3, Aspartate Amino Transf (AST/SGOT) 50H, Alanine Aminotransferase (ALT/SGPT) 160H, Alkaline Phosphatase 85, Total Protein 6.0L, Albumin 3.0L, Globulin 3.0, Albumin/Globulin Ratio 1.0, Lipase 119 Height (Feet): 5 Height (Inches): 4.00 Weight (Pounds): 140 General Appearance: alert EENT: normal ENT inspection Neck: supple Cardiovascular: normal rate Respiratory/Chest: decreased breath sounds Abdomen: hypoactive bowel sounds Extremities: non-tender Shashank Onofre MD Oct 09, 2019 09:59
--- NOTE | 2019-10-09 12:20 | NUR ---
NURSE NOTES: Received Covid test result negative.
--- NOTE | 2019-10-09 12:34 | NUR ---
NURSE NOTES: Pt transferred to surgery via bed with stable condition.
[2019-10-09] MEDS ORDERED: LR 1000ml 1,000 ML IVLG SCH (12:49)
[2019-10-09] MEDS ORDERED: NeoSporin Gu Irrig 1ml Amp IRRIG ONE (12:50)
[2019-10-09] MEDS ORDERED: Iothalamate Meglumine 60% 30ML INJ ONE (12:50)
[2019-10-09] MEDS ORDERED: Bacitracin 50000 Units Vial ONE (12:50)
--- NOTE | 2019-10-09 12:52 | Immediate Post-Op Evaluation ---
Immediate Post-Op Evalulation Immediate Post-Op Evalulation Procedure: Laparoscopic Cholecystectomy Date of Evaluation: Oct 09, 2019 Time of Evaluation: 14:20 IV Fluids: 400 LR Blood Products: 0 Estimated Blood Loss: 10 Urinary Output: 0 Blood Pressure Systolic: 107 Blood Pressure Diastolic: 62 Pulse Rate: 87 Respiratory Rate: 16 O2 Sat by Pulse Oximetry: 100 Temperature (Fahrenheit): 98.7 Pain Score (1-10): 2 Nausea: No Vomiting: No Complications 0 Patient Status: awake, reacts, patent, extubated, none Hydration Status: adequate Dru Gram Ancef IV Given Within 1 Hr of Incision: Yes Time Given: 13:11 Dusty Vicente MD Oct 09, 2019 12:52
[2019-10-09] MEDS ORDERED: Ketorolac 30mg Inj IV PRN ×2 (13:00)
[2019-10-09] MEDS ORDERED: HYDROcodone/Acetamin 5/325 tab ORAL PRN ×2 (13:00→14:15)
[2019-10-09] MEDS ORDERED: fentaNYL 100 mcg/2 mL IV PRN (13:00)
[2019-10-09] MEDS ORDERED: NS Irrig 1000ml ONE (13:00)
[2019-10-09] MEDS ORDERED: DiphenhydrAMINE 50mg/ml Inj IVP PRN (13:00)
[2019-10-09] MEDS ORDERED: HYDROcodone/Acetamin 7.5/325 tab ORAL PRN (13:00)
[2019-10-09] MEDS ORDERED: oxyCODONE HCL/Acetaminophen 5/325mg ORAL PRN (13:00)
[2019-10-09] MEDS ORDERED: Metoclopramide 10mg/2ml Inj IVP PRN (13:00)
[2019-10-09] MEDS ORDERED: Sterile Water Irrig 1000ml IRRIG ONE (13:00)
[2019-10-09] MEDS ORDERED: Labetalol 5mg/ml 20ml vial IV PRN (13:00)
[2019-10-09] MEDS ORDERED: LR 1000ml ONE (13:00)
[2019-10-09] MEDS ORDERED: Meperidine 25mg/0.5ml Inj (FOR RIGORS ONLY) IV PRN (13:00)
[2019-10-09] MEDS ORDERED: Neostigmine 1mg/ml 10ml Inj ONE (13:00)
[2019-10-09] MEDS ORDERED: Acetaminophen (Non formulary) 100 ML IV ONE (13:00)
[2019-10-09] MEDS ORDERED: Hydromorphone 0.5mg/0.5ml inj IVP PRN (13:00)
[2019-10-09] MEDS ORDERED: Midazolam 2mg/2ml Inj IVP PRN (13:00)
[2019-10-09] MEDS ORDERED: Atropine Sulfate 0.4mg/ml inj IVP PRN (13:00)
[2019-10-09] MEDS ORDERED: LORazepam Inj 2mg/ml 1ml IV PRN (13:00)
--- NOTE | 2019-10-09 13:00 | Progress Note ---
DATE: 10/09/2019 SUBJECTIVE: This is a 34-year-old female, who came with acute cholecystitis and abdominal pain. The patient is going for surgery. No fever. OBJECTIVE: VITAL SIGNS: Blood pressure 98/58, pulse 68. No fever. CHEST: Bilaterally clear. CARDIOVASCULAR: Regular rhythm. ABDOMEN: Soft. EXTREMITIES: CCE. ASSESSMENT: Acute cholecystitis. PLAN: We will continue antibiotics, n.p.o. surgery today. Emile Ramirez M.D. DR: LEYDI JOB#: [id number] CC:
[2019-10-09] MEDS ORDERED: fentaNYL 100 mcg/2 mL IV ONE (13:02)
[2019-10-09] MEDS ORDERED: Midazolam 2mg/2ml Inj ONE (13:02)
[2019-10-09] MEDS ORDERED: Lidocaine 1% MPF 10mg/ml 5ml ONE (13:05)
--- NOTE | 2019-10-09 13:24 | NUR ---
CASE MANAGEMENT: REVIEW 10/08/19 SI:S/P OPEN CHOLECYSTECTOMY ACUTE GALLSTONE PANCREATITIS . UTI 97.6 66 20 125/66 100% ON RA AST/ALT 109/230 ALB 3.0 IS:IV NS @100ML/HR IV ROCEPHIN QD TYLENOL Q6HR/PRN NORCO PO Q6HR/PRN \: 3[facility] SURG UNIT DCP: HOME WHEN STABLE CASE MANAGEMENT: REVIEW 10/09/19 SI:S/P OPEN CHOLECYSTECTOMY ACUTE GALLSTONE PANCREATITIS . UTI 97.8 65 18 102/71 99% ON RA LAST.ALT 50/160 ALB 3.0 IS:IV NS @100ML/HR IV ROCEPHIN QD TYLENOL Q6HR/PRN NORCO PO Q6HR/PRN \: [facility] SURG UNIT DCP: HOME WHEN STABLE
[2019-10-09] MEDS ORDERED: Glycopyrrolate 0.2mg/ml 1ml Vial ONE (13:46)
--- NOTE | 2019-10-09 14:13 | Brief Operative Note ---
Immediate Post Operative Note Operative Note Pre-op Diagnosis: acute gallstone pancreatitis Procedure: lap katy Post-op Diagnosis: same as pre-op Surgeon: otilia Anesthesiologist: rommel Anesthesia: general, local Specimen: yes Complications: none Condition: stable Fluids: see Estimated Blood Loss: minimal Drains: none Implant(s) used?: No Jaguar Guzman Oct 09, 2019 14:13
[2019-10-09] MEDS ORDERED: Morphine Sulfate 4mg/ml Inj (IV USE ONLY) IVP PRN (14:15)
[2019-10-09] MEDS ORDERED: Milk of Magnesia 30ml Ud ORAL PRN (14:15)
--- NOTE | 2019-10-09 15:06 | NUR ---
NURSE NOTES: Pt came back to the unit from surgery via bed. Pt awake but drowsy. Breathing even and unlabored. Surgical wound dressings noted on abdomen, clean, dry and intact. Pt on NC 2L. Vital signs stable. Pt c/o pain on surgical area. Per PACU nurse, pain med was just given to pt before transfer. Pt agree to wait for med effect. I/S at bedside. Instructed pt to use it every 1hour. Pt verbalized understanding. Bed in low position, locked. Call light within reach. Will continue to monitor.
[2019-10-09] MEDS: Docusate 100mg cap ORAL SCH (17:07)
[2019-10-09] MEDS: HYDROcodone/Acetamin 10/325 tab ORAL PRN (17:07)
--- NOTE | 2019-10-09 19:00 | Operative Note - Dictated ---
DATE OF OPERATION: 10/09/2019 PREOPERATIVE DIAGNOSIS: Acute gallstone pancreatitis. POSTOPERATIVE DIAGNOSIS: Acute gallstone pancreatitis. OPERATION: Laparoscopic cholecystectomy. ATTENDING SURGEON: Jaguar Guzman MD. TECHNICAL STENOGRAPHER: None. ANESTHESIOLOGIST: Dusty Vicente MD. ANESTHESIA: General BUILDING CONSTRUCTION PROFESSOR plus local. ESTIMATED BLOOD LOSS: Minimal. IV FLUIDS: Please see anesthesia records. COMPLICATIONS: None. DRAINS: None. COUNTS: Sponge and needle count correct x2. WOUND CLASSIFICATION: Class 3. ANTIBIOTICS: Patient is on scheduled IV antibiotics for acute active infectious process. SPECIMEN: Gallbladder sent to pathology for review. INDICATIONS FOR PROCEDURE: This is a 34-year-old female who has been having intermittent biliary colic and episodes of acute cholecystitis for some time now. Recently identified to have acute gallstone pancreatitis and has gone home, changed her diet and eating lifestyle habits and was planned to evaluate outpatient for consideration of cholecystectomy, returned with acute pain worsening with radiation to the back and noted to have significantly elevated lipase indicative of acute gallstone pancreatitis. Given her multiple episodes, multiple hospital visits, emergency department visits, admissions, and worsening condition since initial event, a recommendation was for cholecystectomy, which was indicated and recommended. Consent was obtained from the patient after risks, benefits, and alternatives discussed in detail. OPERATIVE NOTE: Patient was taken to the operative room, placed on the operating table in the supine position with bilateral arms out. All bony prominences were well padded. SCDs placed. Preoperative time-out taken identifying the patient, procedure, operative staff, and surgical staff. General anesthesia was induced. The patient was intubated. The abdomen was clipped, prepped, and draped in standard surgical fashion. Local anesthetic was infiltrated throughout the case for patient's comfort. An infraumbilical incision was made and carried down to the subcutaneous tissue to the fascia. Fascia was elevated and incised. Entry into the abdomen obtained using open Cruz technique without complication. A 12 mm Cruz trocar inserted and the abdomen insufflated to 12 to 15 mmHg. The patient tolerated the insufflation well. Laparoscope inserted and the abdomen inspected. No injury from initial trocar placement noted. Secondary trocars placed under direct visualization beginning with a 12 mm subxiphoid followed by two 5 mm right subcostal. Patient was placed in the appropriate reverse Trendelenburg [id number] position. The gallbladder was grasped at the dome using most lateral retractor and retracted the liver. Infundibulum was identified and grasped using the midclavicular port. It was retracted towards right lower quadrant. Gentle dissection carried out, identified the cystic duct and artery clearly and the critical view was obtained. Once this was completed, the cystic artery was doubly clipped and divided. The only remaining structure entering into the infundibulum was the cystic duct. Cystic duct was doubly clipped and divided. The gallbladder was taken off the liver bed using electrocautery. Hemostasis was obtained with electrocautery. Gallbladder was placed in endoscopic retrieval bag and removed from the abdomen using the umbilical port site. Once good hemostasis was noted, the operative field was evaluated. Clips noted in place. No leakage of bile. No bleeding noted. At this time, we began conclusion of our procedure. Secondary trocars removed under direct visualization followed by the umbilical trocar site. Abdomen was desufflated. Umbilical trocar site and subxiphoid port site fascia were approximated using [id number] 0 Vicryl sutures. Skin incisions were reapproximated using 4-0 Monocryl subcuticular interrupted sutures. Skin glue and Steri-Strips applied. Patient tolerated the procedure well, was extubated, and taken to postanesthetic care unit in stable condition. Jaguar Guzman M.D. DR: TL JOB#: [id number] CC:
--- NOTE | 2019-10-09 19:54 | NUR ---
NURSE HAND-OFF: Important Events on Shift:surgery Patient Status: stable Diet: Reg Pending Orders: n Pending Results/Labs:n] Pending MD notification:n Latest Vital Signs: Temperature 97.8 , Pulse 77 , B/P 110 /60 , Respiratory Rate 18 , O2 SAT 99 , Nasal Cannula, O2 Flow Rate 3 . Vital Sign Comment: stable Latest Young Fall Score: 35 Fall Risk: Medium Risk Safety Measures: Call light Within Reach, Bed Alarm Zone 1, Side Rails Side Rails x2, Bed position Low and Locked. Fall Precautions: Patient Fall Education Report given to MAIKEL Haley .
--- NOTE | 2019-10-09 19:58 | NUR ---
NURSES NOTE: Pt in bed, A/OX4, states pain is 6/10 in abdominal area that radiates to lower back. No outward signs of distress. Breathing is even and unlabored on RA. Dressing on abdomen is dry, clean, intact. IV site patent infusing IVF without incident. Bed at lowest position, call light within reach. All due meds will be given. Pt will continue to be monitored.
[2019-10-09] MEDS: Morphine Sulfate 2mg/ml Inj(IV/IM USE ONLY) IVP PRN (20:21)
[2019-10-09] MEDS: cefTRIAXone 1 GM in D5W 55 ML IVPB SCH (20:21)
[2019-10-10] VITALS: BP 100/50
[2019-10-10] MEDS: Morphine Sulfate 2mg/ml Inj(IV/IM USE ONLY) IVP PRN (01:59)
[2019-10-10 04:00] VITALS: BP 98/55
[2019-10-10] MEDS: HYDROcodone/Acetamin 10/325 tab ORAL PRN ×2 (06:48→11:34)
--- NOTE | 2019-10-10 07:30 | NUR ---
NURSE NOTES: Report received from Sudha KO, rounds made. Patient AOx4, calm on RA, respirations even/unlabored. Resting in semi-fowlers position in bed, no NV, tolerating Regular diet breakfast, fair. Complains of new right shoulder pain 3/10 at rest and 7/10 with use, Dr. Guzman notified, no further orders, patient denies sleeping on it or any previous injury. Abdominal surgical site x4 steri strips noted, CDI. Abdomen soft, no bowel sounds, flatulence present. Bilateral SCDs on. IV NS at 100 ml/hr infusing to RAC, site asymptomatic. Call light in reach, bed in lowest position, will continue to monitor. Addendum: 10/10/19 at 1549 by Dania Alva RN Encouraged IS and ankle rotation, verbalized understanding.
--- NOTE | 2019-10-10 07:40 | NUR ---
HAND OFF: Report given to MAIKEL Najera. Pt in stable condition.
[2019-10-10 08:00] VITALS: BP 120/79
[2019-10-10] MEDS: Docusate 100mg cap ORAL SCH (08:57)
--- NOTE | 2019-10-10 11:10 | General Progress Note ---
Assessment/Plan Assessment/Plan: gallstone pancreatitis IVF pain control MRCP>> reviewed>> no CBD stones repeat labs post cholecystectomy fu surg recs Subjective ROS Limited/Unobtainable: Yes Allergies: Coded Allergies: No Known Allergies (Unverified , 08/21/19) Objective Last 24 Hour Vital Signs Date Time Temp Pulse Resp B/P (MAP) Pulse Ox O2 Delivery O2 Flow Rate FiO2 10/10/19 08:00 98.5 85 19 120/79 (93) 99 10/10/19 04:00 98.6 81 18 98/55 (69) 97 10/10/19 00:00 98.6 83 19 100/50 (67) 100 10/09/19 21:00 Room Air 10/09/19 20:00 99.0 93 19 100/60 (73) 94 10/09/19 17:37 97.8 10/09/19 16:31 97.8 10/09/19 16:00 98.8 77 18 110/60 (77) 99 10/09/19 15:10 97.8 10/09/19 15:06 97.8 70 18 115/65 (82) 99 10/09/19 14:50 97.8 70 16 111/63 100 Nasal Cannula 3 10/09/19 14:40 71 18 114/62 100 Nasal Cannula 3 10/09/19 14:30 69 19 114/71 100 Simple Mask 6 10/09/19 14:20 67 17 111/65 100 Simple Mask 6 10/09/19 14:15 72 18 110/63 100 Simple Mask 6 10/09/19 14:10 78 16 109/63 100 Simple Mask 6 10/09/19 14:07 87 16 100 10/09/19 14:06 98.7 82 13 111/62 100 Simple Mask 6 10/09/19 12:00 97.8 65 18 102/71 (81) 99 Intake and Output 10/09/19 10/10/19 19:00 07:00 Intake Total 500 ml Output Total 20 ml Balance 480 ml Intake IV Total 500 ml Estimated Blood Loss 20 ml # Voids 2 2 Height (Feet): 5 Height (Inches): 3.00 Weight (Pounds): 140 General Appearance: alert EENT: normal ENT inspection Neck: supple Cardiovascular: normal rate Respiratory/Chest: decreased breath sounds Abdomen: other - post surgical Extremities: non-tender Vosoghi,Shashank MD Oct 10, 2019 11:10
--- NOTE | 2019-10-10 11:39 | 48 Hour Post Anesthesia Eval ---
Post Anesthesia Evaluation Procedure: Laparoscopic Cholecystectomy Date of Evaluation: Oct 10, 2019 Time of Evaluation: 11:38 Blood Pressure Systolic: 122 0: 72 Pulse Rate: 76 Respiratory Rate: 20 Temperature (Fahrenheit): 97.6 O2 Sat by Pulse Oximetry: 98 Airway: patent Nausea: No Vomiting: No Pain Intensity: 2 Hydration Status: adequate Cardiopulmonary Status: stable Mental Status/LOC: patient returned to baseline Follow-up Care/Observations: n/a Post-Anesthesia Complications: none Follow-up care needed: N/A Good Webber MD Oct 10, 2019 11:39
--- NOTE | 2019-10-10 11:45 | NUR ---
NURSE NOTES: Dr. Ramirez notified of patient complaining of new pain to right shoulder 3/10 at rest and 7/10 with use, orders received for Ibuprofen, see order. Reviewed new orders with patient and eMAR. Patient medicated with Payne 10mg per patient request. Applied ice compress to right shoulder, will continue to monitor.
[2019-10-10 12:00] VITALS: BP 118/86
[2019-10-10] MEDS ORDERED: NORCO 5-325 TA1 EAC1 ORAL (14:44)
[2019-10-10] MEDS ORDERED: COLACE100 MG ORAL (14:44)
--- NOTE | 2019-10-10 15:37 | NUR ---
NURSE NOTES: Discharge instructions and prescription medications (filled by [facility] pharmacy across the street/delivered) reviewed with patient, verbalized understanding. RAC IV/saline lock discontinued, no active bleeding. Patient up ambulating in room/BRP, sitting in chair. Tolerating ice pack to right shoulder (pain improved 2/10) and ice pack to abdomen. All belongings/prescription medications x2 and discharge packet given to patient. Patient ambulated down to lobby with Daysi REYNA, in stable condition. Discharged home at 1537.
--- NOTE | 2019-10-14 12:03 | Discharge Summary ---
Discharge Summary Discharge Summary _ DATE OF ADMISSION: 10/07/2019 DATE OF DISCHARGE: 10/10/2019 DISCHARGED BY: Dr. Ramirez REASON FOR ADMISSION: 34 years old female with past medical history of cholelithiasis, presented with complaints of postprandial epigastric abdominal pain with radiation to the right upper quadrant. Patient failed to follow-up with a general surgeon on outpatient basis since she was discharged from the hospital the last month. Last bowel movement was earlier in the morning and was normal. Patient denied fever and chills. Patient reported no nausea and nonbloody nonbilious vomiting. No diarrhea. No dysuria or hematuria. No chest pain or shortness of breath. No cough. Upon evaluation vital signs were stable. Laboratory work-up revealed no leukocytosis ,stable hemoglobin ,hematocrit and platelet count. AST 212 ,ALT 132. Lipase 2067 Total bilirubin 0.3 test was negative. Urinalysis revealed no evidence of urinary tract infection. Abdominal ultrasound revealed cholelithiasis and borderline extrahepatic ductal dilatation . Rapid COVID-19 in ED was negative. Patient admitted with acute gallstone pancreatitis ;abdominal pain with nausea, vomiting; transaminitis. CONSULTANTS: GI specialist Dr. Onofre surgery [facility] COURSE: Patient admitted to medical surgical floor and started on IV hydration. Abdominal MRI revealed cholelithiasis , otherwise unremarkable. No CBD stones. Pain management was addressed as needed. Antiemetic provided symptomatically. Lipase trended down. MRCP revealed no evidence of common bile duct stones. Patient undergone on 10/08 laparoscopic cholecystectomy. Patient tolerated surgery well. Postoperatively pain management was addressed. Patient slowly started on diet as tolerated. Ambulation was encouraged. Bowel regimen instituted. Patient was able to tolerate diet. Urine culture was negative. LFT trending down : AST down to 50 , ALT d 160 . Patient remained afebrile, no leukocytosis. Patient clinically stabilized and was ready for discharge home . Outpatient follow-up with surgeon FINAL DIAGNOSES: Acute gallstone pancreatitis Cholelithiasis Status post laparoscopic cholecystectomy Transaminitis Abdominal pain DISCHARGE MEDICATIONS: See Medication Reconciliation list. DISCHARGE INSTRUCTIONS: Patient was discharged home. Follow-up with a primary care provider in 1 week. I have been assigned to dictate discharge summary for this account. I was not involved in the patient's management. Susie Whitlock NP Oct 14, 2019 12:03
== END 2019-10-10 15:35 | disposition home or self-care (01) | DRG 263 ==
LOC: EMR 01:50 → 3E 02:48 → EDBEDREQ 03:53
PROC: 0FT44ZZ Resection of Gallbladder, Percutaneous Endoscopic Approach (ICD-10-PCS; principal; 2019-10-09 13:00)
DX: K85.10 Biliary acute pancreatitis without necrosis or infection (principal); R74.0 Nonspecific elevation of levels of transaminase and lactic acid dehydrogenase [LDH]
CPT/HCPCS: 36415; 74181; 76700; 80053; 81003; 82150; 83690; 84703; 85025; 85610; 85730; 87086; 93005; 94003; 94150; 96361; 96365; 96375; 99285; J2180; J2250; J2405; J2710; J7030; U0002